=== PATIENT | male | born 1985 | race Caucasian/White ===

== ENCOUNTER 2016-08-16 16:54 | Inpatient (IN) | payer MEDICAID, SELFPAY ==
[~2016-08-16] VITALS: Ht 152.4 cm; Wt 50.3 kg
[2016-08-16] VITALS (27 sets, daily range): BP systolic 100–153; BP diastolic 57–104; O2SAT 100
[2016-08-16] MEDS ORDERED: ASPIRIN 81 MG CHEW TABLET PO ONE (17:30)
[2016-08-16 17:48] LABS: BASO % 0.4 % (0.0-1.0); EOS # 0.1 K/mm3 (0.0-0.50); EOS % 0.9 % (0.0-3.0); LARGE UNSTAINED CELL # 0.1 K/mm3 (0.0-0.4); LARGE UNSTAINED CELL % 1.1 % (0.0-4.0); LYMPH # 1.4 K/mm3 (1.5-6.5); LYMPH % 16.2 % (24.0-44.0); MEAN CORPUSCULAR HEMOGLOBIN 31.6 pg (27.0-33.0); MEAN CORPUSCULAR HGB CONC 34.6 g/dl (32.0-36.5); MEAN CORPUSCULAR VOLUME 91.4 fl (80.0-96.0); MONO # 0.3 K/mm3 (0.0-0.8); MONO % 3.5 % (0.0-5.0); NEUTROPHILS # 6.5 K/mm3 (1.8-7.7); NEUTROPHILS % 77.8 % (36.0-66.0); PLATELET COUNT, AUTOMATED 227 k/mm3 (150-450); RED CELL DISTRIBUTION WIDTH 13.3 % (11.5-14.5); WHITE BLOOD COUNT 8.4 K/mm3 (4.0-10.0)
--- NOTE | 2016-08-16 17:56 | REP ---
Chest two views HISTORY: Chest pain Comparison: 03/29/2013 A moderate sign is left pneumothorax is present. There is no significant shift of the mediastinal structures. The right lung is clear. The heart is normal in size. The pulmonary vasculature is normal in appearance. The bony structure is intact. IMPRESSION: Moderate-sized left pneumothorax. Signed by Mack Jackman MD 08/16/2016 05:47 P
[2016-08-16] MEDS ORDERED: ONDANSETRON 4MG/2ML VIAL (J2405) IV ONE (18:00)
[2016-08-16] MEDS ORDERED: MORPHINE 4 MG/ML 1ML SYRINGE IV ONE (18:00)
[2016-08-16] MEDS ORDERED: KCL 20MEQ IN D5/NS 1000ML 1,000 ML IV SCH (18:14)
[2016-08-16] MEDS ORDERED: ACETAMINOPHEN TAB 650MG DOSE (2X325MG) PO PRN (18:15)
[2016-08-16] MEDS ORDERED: LEVALBUTEROL 1.25 MG/0.5 ML CONCENTRATE NEB NEB PRN (18:15)
[2016-08-16] MEDS ORDERED: ONDANSETRON 4MG/2ML VIAL (J2405) IV PRN (18:15)
[2016-08-16] MEDS ORDERED: BISACODYL 10 MG SUPP PR PRN (18:15)
[2016-08-16 18:19] LABS: ANION GAP 8 MEQ/L (8-16); BLOOD UREA NITROGEN 6 MG/DL (7-18); CALCIUM LEVEL 8.3 MG/DL (8.5-10.1); CARBON DIOXIDE LEVEL 26 MEQ/L (21-32); CHLORIDE LEVEL 109 MEQ/L (98-107); CREATININE FOR GFR 0.88 MG/DL (0.70-1.30); GLOMERULAR FILTRATION RATE > 60.0 (>60); GLUCOSE, FASTING 102 MG/DL (70-105); POTASSIUM SERUM 3.9 MEQ/L (3.5-5.1); SODIUM LEVEL 143 MEQ/L (136-145)
[2016-08-16] MEDS ORDERED: LIDOCAINE 1% MDV 20ML VIAL As Ordered ONE (18:33)
[2016-08-16] MEDS ORDERED: MIDAZOLAM INJ 2 MG/2 ML VIAL (J2250) As Ordered ONE ×3 (18:35→18:57)
[2016-08-16 18:36] LABS: INR 0.98
[2016-08-16] MEDS ORDERED: FLUMAZENIL 0.5 MG/5 ML VIAL As Ordered ONE (18:48)
[2016-08-16] MEDS ORDERED: MIDAZOLAM INJ 2 MG/2 ML VIAL (J2250) IV ONE ×2 (19:30→20:00)
[2016-08-16] MEDS ORDERED: LIDOCAINE 1% MDV 20ML VIAL SC ONE (19:30)
--- NOTE | 2016-08-16 19:42 | REP ---
PORTABLE CHEST, ONE VIEW: HISTORY: Chest tube placement. COMPARISON: 5:44 p.m. 08/16/2016 The patient is status-post left chest tube placement. A small left apical pneumothorax is present. The lungs are clear. The heart is normal in size. IMPRESSION: The patient is status-post left chest tube placement. A small left apical pneumothorax is present. Signed by Mack Jackman MD 08/16/2016 07:45 P
[2016-08-16] MEDS: LEVALBUTEROL 1.25 MG/0.5 ML CONCENTRATE NEB NEB SCH (20:00)
[2016-08-16] MEDS: KETOROLAC 30 MG/ML VIAL (J1885) IV SCH (20:15)
[2016-08-16] MEDS: HEPARIN SOD (PORCINE) 5000 UNITS/ML VIAL SC SCH (21:14)
[2016-08-16] MEDS: DOCUSATE SODIUM 100 MG CAP PO SCH (21:14)
[2016-08-16] MEDS: PERCOCET 5MG/325MG TAB PO PRN (22:36)
[2016-08-17] VITALS: BP 118/79
[2016-08-17] MEDS: KETOROLAC 30 MG/ML VIAL (J1885) IV SCH ×4 (02:04→20:22)
[2016-08-17] MEDS: LEVALBUTEROL 1.25 MG/0.5 ML CONCENTRATE NEB NEB SCH ×4 (02:18→20:32)
[2016-08-17] MEDS: PERCOCET 5MG/325MG TAB PO PRN ×3 (03:48→16:17)
[2016-08-17 04:00] VITALS: BP 110/70
[2016-08-17 04:39] LABS: BASO % 0.3 % (0.0-1.0); EOS # 0.1 K/mm3 (0.0-0.50); EOS % 0.6 % (0.0-3.0); LARGE UNSTAINED CELL # 0.1 K/mm3 (0.0-0.4); LARGE UNSTAINED CELL % 1.1 % (0.0-4.0); LYMPH # 2.4 K/mm3 (1.5-6.5); LYMPH % 25.7 % (24.0-44.0); MEAN CORPUSCULAR HGB CONC 33.3 g/dl (32.0-36.5); MEAN CORPUSCULAR VOLUME 92.9 fl (80.0-96.0); MONO # 0.4 K/mm3 (0.0-0.8); NEUTROPHILS # 6.4 K/mm3 (1.8-7.7); NEUTROPHILS % 68.3 % (36.0-66.0); PLATELET COUNT, AUTOMATED 208 k/mm3 (150-450); RED CELL DISTRIBUTION WIDTH 13.5 % (11.5-14.5); WHITE BLOOD COUNT 9.4 K/mm3 (4.0-10.0)
[2016-08-17 04:43] LABS: ANION GAP 3 MEQ/L (8-16); BLOOD UREA NITROGEN 6 MG/DL (7-18); CALCIUM LEVEL 7.8 MG/DL (8.5-10.1); CARBON DIOXIDE LEVEL 29 MEQ/L (21-32); CHLORIDE LEVEL 112 MEQ/L (98-107); CREATININE FOR GFR 0.86 MG/DL (0.70-1.30); GLOMERULAR FILTRATION RATE > 60.0 (>60); GLUCOSE, FASTING 105 MG/DL (70-105); POTASSIUM SERUM 3.8 MEQ/L (3.5-5.1); SODIUM LEVEL 144 MEQ/L (136-145)
[2016-08-17 06:15] LABS: ABG BASE EXCESS -0.6 (-2.0-2.0); ABG PARTIAL PRESSURE CO2 44.9 mmHg (35.0-45.0); ABG PARTIAL PRESSURE O2 92.6 mmHg (75.0-100.0); ABG TOTAL CO2 26.4 MEQ/L (22.0-29.0); ABG pH (ARTERIAL) 7.364 UNITS (7.350-7.450)
--- NOTE | 2016-08-17 07:38 | HPE ---
DATE OF ADMISSION: 08/16/2016 The patient seen at the request of Dr. Elidia Kapadia in the emergency room for acute onset of left sided chest pain with a chest x-ray that shows a nearly complete pneumothorax on the left. HISTORY OF PRESENT ILLNESS: The patient is a 31-year-old, white male who awoke this morning ready to go work and suddenly felt a sharp stabbing chest pain in his left side which was accompanied by shortness of breath and then shortly thereafter by cough. He has had no prior fever, chills or sweats. There has been no weight loss. There has been no prior upper respiratory infection (URI) and no prior cough or shortness of breath. He works at an [employer]. He was encouraged to come to the emergency room by his relatives where he was found to have a pneumothorax. PAST MEDICAL HISTORY: None. PAST SURGICAL HISTORY: None. He has had all his teeth however removed at the age of 26 for poor dentition. MEDICATIONS AT HOME: None. ALLERGIES: None. TRAVEL HISTORY: No travel to the [facility] or [facility] or any foreign travel. EXPOSURES: No dogs, cats or birds at home. OCCUPATIONAL HISTORY: As noted in history of present illness (HPI). No asbestos exposure. HABITS: He smokes about a 1/2 a pack per day since his teenage years. Drinks very rarely and there is no history of illicit drugs. FAMILY HISTORY: Father at 45 of COPD. Half brother with "collapsed" lung. REVIEW OF SYSTEMS: Constitutional: See HPI. Without diplopia. Without transient monocular blindness. Without prior jaundice. Nose without epistaxis. Mouth is edentulous, without dentures. Respiratory: See HPI. Cardiac: Without prior myocardial infarctions or intermittent claudications or peripheral edema. Gastrointestinal (GI): Without nausea, vomiting, diarrhea, constipation, melena , hematochezia, hematemesis or abdominal pain. Genitourinary (): Without hematuria, dysuria or prior history of renal stones. Neurologic: Without paresthesias, paralyses or prior seizures. Endocrine: Without diabetes. Without thyroid disease. Lymphatics: Without lumps or bumps in the neck, axilla or groin noted. Psychiatric: Without depression, psychoses or anxieties. PHYSICAL EXAMINATION: General: Well developed, asthenic, white male in no acute distress. His temperature is 98.5 with a pulse of 86 and a respiratory rate of 18 without the use of accessory muscles and who is 98% saturated on 3 liters nasal cannula. Eyes: Pupils equal round and reactive to light. Extraocular muscles intact. Sclerae nonicteric. Nose without deformity. Mouth shows the mucous membranes to be pink and moist. Lips and commissures without lesions. There is no thrush. He is missing all his teeth. Neck is supple. There is no jugular venous distention. No subcutaneous emphysema. Trachea is midline. There are no carotid bruits. No lymphadenopathy or thyromegaly. Lungs show markedly decreased breath sounds on the left side where the percussion note is full to the diaphragm and almost hyperresonant. Abdomen: Soft. Nontender. Bowel sounds are positive. There is no hepatomegaly. No costovertebral angle (CVA) tenderness. Cardiac: Exam is without murmurs, clicks, gallops, or rubs. I cannot feel his PMI. S1, S2 are normal. Extremities: Show no pretibial edema. No calf tenderness. No differential swelling of the upper extremities. Skin: Warm, dry and perfused. Without cyanosis or mottling, including that of the nail beds and knees. Neurologic: Shows II-XII intact along with gross motor and gross sensation intact. Gait is not tested. Psychiatric shows him to be awake, alert, and oriented times three with appropriate mood and affect and conversational. INVESTIGATIONS: His white count is 8.5 with hemoglobin and hematocrit of 14.7 and 42.5 and a platelet count of 227 with a differential that shows 77% neutrophils, 16% lymphocytes and 3% monocytes. There are no immature forms and no toxic granulations. Electrolytes are normal with a BUN and creatinine of 6 and 0.88 with a glucose of 102 and a calcium of 8.3. CK-MB is 1 and his troponin is less than 0.02 with lipase of 220 which is within normal limits. PT/INR are 13.1/0.98 respectively. His chest x-ray shows a nearly complete pneumothorax on the left side. The chest x-ray is taken PA and lateral. There is a slight mediastinal shift to the right , but there is no subcutaneous emphysema. IMPRESSION: 1. Spontaneous pneumothorax. 2. Tobacco abuse. PLAN AND DISCUSSION: I will immediately place a chest tube. After doing so, we will watch to see if the lung gets reinflated and continue to watch the x-ray and the air leak. Will check a CT of his chest in the AM and alpha 1 antitrypsin level if emphysematous changes are seen because of his family history. ANNE MARIE
--- NOTE | 2016-08-17 07:38 | ECGEPIP ---
Stationary ECG Study [facility] ED Test Date: 2016-08-16 Pat Name: SUGEY CHAND Department: Room: [place] [address] Gender: M [employer] Work[employer]: donavon : 1985 Requested By: Elidia Jacques Order Number: [id number] Reading MD: Elidia Jacques Measurements Intervals [place] Rate: 80 P: 79 MS: 123 QRS: 84 QRSD: 96 T: 75 QT: 352 QTc: 407 Interpretive Statements SINUS RHYTHM NO PRIOR FOR COMPARISON Electronically Signed On 08-17-2016 7:37:53 EDT by Elidia Jacques
[2016-08-17] MEDS: DOCUSATE SODIUM 100 MG CAP PO SCH ×2 (07:59→20:21)
[2016-08-17] MEDS: MOM 30ML SUSPENSION UDC PO SCH (07:59)
[2016-08-17] MEDS: PANTOPRAZOLE 40MG TAB (PROTONIX) PO SCH (07:59)
[2016-08-17 08:00] VITALS: BP 139/69
[2016-08-17] MEDS ORDERED: ISOVUE-370 76% 100ML VIAL (Q9967) As Ordered ONE (08:00)
[2016-08-17] MEDS: HEPARIN SOD (PORCINE) 5000 UNITS/ML VIAL SC SCH ×2 (08:00→20:21)
--- NOTE | 2016-08-17 09:44 | REP ---
Clinical: Idiopathic blebs. Pneumothorax. Technique: Axial contrast enhanced images from the thoracic inlet to the upper abdomen using 100 ml Isovue 370 intravenous contrast material with multiplanar re-formations. Findings: A chest tube is identified via anterior approach extending to the medial left lung apex. No significant residual pneumothorax is appreciated. The lung ho are well-aerated. Few small scattered sub centimeter intraparenchymal bullae are identified along with small sub centimeter blebs noted at the pleural surface along the medial left upper lobe measuring up to 9.5 mm. Trace left basilar atelectasis noted. No further consolidation, nodule or mass lesion. No pleural effusion. Tracheobronchial tree is patent. Mediastinum demonstrates normal thoracic aorta, pulmonary vasculature and heart/pericardium. Impression: 1. Left apical chest tube. No significant residual pneumothorax. 2. Few small scattered sub centimeter bullae and blebs. 3. Trace basilar atelectasis without further acute mediastinal or pleuroparenchymal process. Signed by Kale Hyman MD 08/17/2016 09:35 A
--- NOTE | 2016-08-17 10:26 | RO ---
DATE OF PROCEDURE: 08/16/2016 PREPROCEDURE DIAGNOSIS: 100% left pneumothorax. POSTPROCEDURE DIAGNOSIS: 100% left pneumothorax. PROCEDURE: Insertion of left anterior chest tube. SURGEON: Dr. Luis Richmond. FOR[employer] FORMS: ANESTHESIA: Versed DESCRIPTION OF PROCEDURE: Under satisfactory moderate sedation in the form of Versed, the patient was prepped and draped in the usual sterile fashion. The skin, subcutaneous tissue muscle, and pleura were infiltrated with 1% Xylocaine over the 2nd rib. A tunnel was created in the 1st intercostal space above the 2nd rib and a #20 chest tube was placed without difficulty. It was secured to the chest wall with a #2-0 Tevdek suture. The tube was connected to the Pleur-evac with a transient air leak but stopped towards the end when the lung was re-inflated. The patient tolerated the procedure well and a chest x-ray is pending.
[2016-08-17] MEDS: NORCO, ANEXSIA 5/325MG TABLET (HYDROcodone/ACETAMINOPHEN) PO PRN (11:30)
[2016-08-17 12:00] VITALS: BP 121/71
--- NOTE | 2016-08-17 13:55 | IPN ---
DATE: 08/17/2016 Please note this is the first hospital day for Mr. Hinojosa. His chest tube is not leaking. His lung is fully expanded to the chest wall. See my discussion of the CAT scan below. His pain is being well controlled with oral pain medications. His vital signs show a T-max of 99.2 with a heart rate that ranges between 17-18 without the use of accessory muscles who is 98% saturated on room air and his blood pressure is ranging between 110/70 to 146/92. His intake and output the past 24 hours has been recorded as 1000 in and 103 out for a positivity of 900 mL. He has put out a total of 8 mL from the chest tube. There is no air leak today. In the last 12 hours he has taken in 1190 mL and put out 405 mL. His weight today is 50 kg compared to 49.4 kg yesterday. PHYSICAL EXAMINATION: His lungs show equal breath sounds on either side. I hear no wheezes, rhonchi, or rhonchi. Percussion is full to the diaphragm. Cardiac exam is without murmurs, clicks, gallops, or rubs. I cannot feel his PMI. S1, S2 normal. Abdomen soft, nontender. Bowel sounds are positive. There is no hepatomegaly. No costovertebral angle (CVA) tenderness. Extremities show no pretibial edema. No calf tenderness. No differential swelling of the upper extremities. Skin is warm, dry and perfused. Without cyanosis or mottling, including that of the nail beds and knees. Neck is supple. There is no jugular venous distention. No subcutaneous emphysema. Trachea is midline. Mouth shows her mucous membranes to be pink and moist. Lips and commissures are without lesions. There is no thrush. Eyes show his pupils to be equal and reactive. Extraocular movements are intact. Sclerae nonicteric. Neurologic shows II-XII intact along with gross motor and gross sensation intact. Gait is not tested. Psychiatric shows him to be awake, alert, and oriented times three with appropriate mood and affect and conversational. His white count today is 9.4 with a hemoglobin and hematocrit of 13.1 and 39.2, slowly down from yesterday's of 14.7 and 42.5. Probably secondary to hemodilution. Platelet count is 208 and a differential shows 68% neutrophils, 25% lymphocytes, and 4% monocytes. There are no immature forms and no toxic granulations. His electrolytes are normal with a BUN and creatinine 6 and 0.86 respectfully. Glucose of 105 and a calcium of 7.8. Blood gases today show a pH of 7.36, PCO2 of 44, PO2 of 92 with a base excess of -0.6. That of course is on room air. His chest CT today shows multiple areas of emphysematous changes throughout his lungs. There is no one specific bleb that I can see which would have been a culprit to his lung falling. Chest tube is in good place. He has emphysematous disease in both the upper and lower lobes. There is some bronchiectasis. I see no other masses. Right adrenals are normal configuration. I do not visualize the left adrenal well, but what I think I see of it looks to be without masses. Liver is without masses as is the spleen. There is no pericardial effusion and there is no mediastinal lymphadenopathy. IMPRESSION: 1. Spontaneous pneumothorax. 2. Extensive emphysematous disease. 3. Family history of early from chronic obstructive pulmonary artery disease (COPD). 4. Tobacco abuse. PLAN AND DISCUSSION: I will check for alpha-1 antitrypsin activity. He does have a family history of early from chronic obstructive pulmonary artery disease (COPD). I have also further given him a ortiz talk with regarding to smoking cessation and it looks as though he is convinced that smoking is indeed not in his best interest. He does not have any cravings for cigarettes at this point and time and so we will not prescribe a nicotine patch. I think that he is fairly well committed to stopping smoking at least at this juncture.
[2016-08-17 16:00] VITALS: BP 130/69
[2016-08-17 20:00] VITALS: BP 134/79
[2016-08-18] VITALS (8 sets, daily range): BP systolic 108–128; BP diastolic 59–78
[2016-08-18] MEDS: LEVALBUTEROL 1.25 MG/0.5 ML CONCENTRATE NEB NEB SCH ×4 (00:17→20:12)
[2016-08-18] MEDS: PERCOCET 5MG/325MG TAB PO PRN (00:52)
[2016-08-18] MEDS: KETOROLAC 30 MG/ML VIAL (J1885) IV SCH ×4 (02:40→21:47)
[2016-08-18 04:40] LABS: BASO % 0.5 % (0.0-1.0); EOS # 0.1 K/mm3 (0.0-0.50); EOS % 1.4 % (0.0-3.0); LARGE UNSTAINED CELL # 0.1 K/mm3 (0.0-0.4); LARGE UNSTAINED CELL % 1.5 % (0.0-4.0); LYMPH % 28.3 % (24.0-44.0); MEAN CORPUSCULAR HEMOGLOBIN 31.2 pg (27.0-33.0); MEAN CORPUSCULAR HGB CONC 34.6 g/dl (32.0-36.5); MEAN CORPUSCULAR VOLUME 90.2 fl (80.0-96.0); MONO # 0.4 K/mm3 (0.0-0.8); MONO % 5.9 % (0.0-5.0); NEUTROPHILS # 4.1 K/mm3 (1.8-7.7); NEUTROPHILS % 62.5 % (36.0-66.0); PLATELET COUNT, AUTOMATED 203 k/mm3 (150-450); RED CELL DISTRIBUTION WIDTH 13.6 % (11.5-14.5); WHITE BLOOD COUNT 6.6 K/mm3 (4.0-10.0)
[2016-08-18 04:53] LABS: ANION GAP 7 MEQ/L (8-16); BLOOD UREA NITROGEN 7 MG/DL (7-18); CALCIUM LEVEL 7.7 MG/DL (8.5-10.1); CARBON DIOXIDE LEVEL 26 MEQ/L (21-32); CHLORIDE LEVEL 111 MEQ/L (98-107); CREATININE FOR GFR 0.79 MG/DL (0.70-1.30); GLOMERULAR FILTRATION RATE > 60.0 (>60); GLUCOSE, FASTING 108 MG/DL (70-105); POTASSIUM SERUM 3.5 MEQ/L (3.5-5.1); SODIUM LEVEL 144 MEQ/L (136-145)
[2016-08-18] MEDS: PANTOPRAZOLE 40MG TAB (PROTONIX) PO SCH (08:48)
[2016-08-18] MEDS: HEPARIN SOD (PORCINE) 5000 UNITS/ML VIAL SC SCH ×2 (08:48→21:46)
[2016-08-18] MEDS: MOM 30ML SUSPENSION UDC PO SCH (08:50)
[2016-08-18] MEDS: DOCUSATE SODIUM 100 MG CAP PO SCH ×2 (08:50→21:46)
--- NOTE | 2016-08-18 09:18 | REP ---
CHEST X-RAY: Two views. HISTORY: Pneumothorax. Comparison chest x-ray July 17, 2016. FINDINGS: There is a chest tube in the left upper anterior chest at its apex. There is no visible pneumothorax. The lungs are symmetrically aerated and clear. Heart is not enlarged. Pulmonary vasculature is not increased. No infiltrate is seen. IMPRESSION: Left chest tube in good position at the apex. No discernible pneumothorax seen. Signed by Leeroy Encinas MD 08/18/2016 11:33 A
--- NOTE | 2016-08-18 16:20 | IPN ---
DATE: 08/18/2016 This is the second hospital day for Mr. Hinojosa. He had a little bit of pain last night which responded to oral analgesics. There is no air leak today. He is not short of breath. His vital signs show a T-max of 98.5 with a heart rate that ranges between 101 and 76 in a sinus rhythm. Respiratory rate of 16-20 without the use of accessory muscle who is 99-98% saturated on room air and his blood pressure is ranging between 120/69 to 118/69. His intake and output the past 24 hours has been recorded as 2030 in and 1535 out for a positivity of 495 mL. He has put 10 mL out f chest tube and as noted above there is no air leak. His weight today is 50.2 kg compared to 50 kg yesterday. PHYSICAL EXAMINATION: He has equal breath sounds on either side. I hear no wheezes, rhonchi, rales. Percussion is full to the diaphragm. Cardiac exam is without murmurs, clicks, gallops, or rubs. I cannot feel his PMI. S1, S2 normal. Abdomen soft, nontender. Bowel sounds are positive. There is no hepatomegaly. No costovertebral angle (CVA) tenderness. Extremities show no pretibial edema. No calf tenderness. No differential swelling of the upper extremities. Skin is warm, dry and perfused. Without cyanosis or mottling, including that of the nail beds and knees. Neck is supple. There is no jugular venous distention. No subcutaneous emphysema. Trachea is midline. Mouth shows his mucous membranes to be pink and moist. Lips and commissures are without lesions. There is no thrush. Eyes show his pupils to be equal and reactive. Extraocular movements are intact. Sclerae nonicteric. Neurologic shows II-XII intact along with gross motor and gross sensation intact. Gait is not tested. Psychiatric shows him to be awake, alert, and oriented times three with appropriate mood and affect and conversational. His white count today is 6.6 with a hemoglobin and hematocrit of 12.3 and 35.6. Differential shows 60% neutrophils, 28% lymphocytes, 5% monocytes. Platelet count is 203. There are no immature forms and no toxic granulations. His electrolytes are normal with a BUN and creatinine of 7 and 0.79. Glucose of 108 and a calcium of 7.7. Alpha-1 antitrypsin is 145 with the lower level being 90. His chest x-ray today shows his lung fully expanded to the chest wall. Chest tube was in good place. I see no other infiltrates. Costophrenic angles are sharp. IMPRESSION: 1. Spontaneous pneumothorax. 2. Extensive emphysematous disease. 3. Family history of early from chronic obstructive pulmonary artery disease (COPD). 4. Tobacco abuse. PLAN AND DISCUSSION: The alpha-1 antitrypsin has come back negative. He does not have a deficiency. His emphysematous changes therefore are purely due to smoking. I have again had a very ortiz talk with him regarding smoking cessation and he seems very motivated to stop smoking. I will remove his chest tube today as there is no air leak and his lung is fully expanded to the chest wall. I explained to the patient that the odds are with him and the pneumothorax will not re-occur however if it does re-occur the odds would be against him that it would re-occur and at that point and time we would recommend more definitive surgical therapy. I plan to discharge him in the morning after a chest x-ray.
[2016-08-19 00:25] VITALS: BP 126/74
[2016-08-19] MEDS: LEVALBUTEROL 1.25 MG/0.5 ML CONCENTRATE NEB NEB SCH ×2 (01:33→07:14)
[2016-08-19] MEDS: KETOROLAC 30 MG/ML VIAL (J1885) IV SCH ×2 (02:19→07:52)
[2016-08-19 04:18] VITALS: BP 129/74
[2016-08-19 05:07] LABS: BASO % 0.3 % (0.0-1.0); EOS # 0.2 K/mm3 (0.0-0.50); EOS % 2.7 % (0.0-3.0); LARGE UNSTAINED CELL # 0.1 K/mm3 (0.0-0.4); LARGE UNSTAINED CELL % 1.9 % (0.0-4.0); LYMPH % 32.1 % (24.0-44.0); MEAN CORPUSCULAR HEMOGLOBIN 30.4 pg (27.0-33.0); MEAN CORPUSCULAR HGB CONC 33.9 g/dl (32.0-36.5); MEAN CORPUSCULAR VOLUME 89.7 fl (80.0-96.0); MONO # 0.3 K/mm3 (0.0-0.8); MONO % 5.8 % (0.0-5.0); NEUTROPHILS # 3.4 K/mm3 (1.8-7.7); NEUTROPHILS % 57.2 % (36.0-66.0); PLATELET COUNT, AUTOMATED 200 k/mm3 (150-450); RED CELL DISTRIBUTION WIDTH 13.8 % (11.5-14.5); WHITE BLOOD COUNT 5.9 K/mm3 (4.0-10.0)
[2016-08-19 05:21] LABS: ANION GAP 6 MEQ/L (8-16); BLOOD UREA NITROGEN 8 MG/DL (7-18); CALCIUM LEVEL 8.3 MG/DL (8.5-10.1); CARBON DIOXIDE LEVEL 28 MEQ/L (21-32); CHLORIDE LEVEL 109 MEQ/L (98-107); CREATININE FOR GFR 0.77 MG/DL (0.70-1.30); GLOMERULAR FILTRATION RATE > 60.0 (>60); GLUCOSE, FASTING 87 MG/DL (70-105); POTASSIUM SERUM 3.1 MEQ/L (3.5-5.1); SODIUM LEVEL 143 MEQ/L (136-145)
--- NOTE | 2016-08-19 07:48 | REP ---
Clinical: Chest pain. Pneumothorax . Comparison: 08/18/2016 . Technique: PA and lateral. Findings: The mediastinum and cardiac silhouette are normal. The lung ho are clear and without acute consolidation, effusion, or pneumothorax. Chest tube has been removed and no residual left apical pneumothorax is appreciated. The skeletal structures are intact and normal. Impression: 1. No acute cardiopulmonary process. 2. No obvious residual left apical pneumothorax appreciated. Signed by Kale Hyman MD 08/19/2016 07:40 A
[2016-08-19] MEDS: PANTOPRAZOLE 40MG TAB (PROTONIX) PO SCH (07:52)
[2016-08-19] MEDS: MOM 30ML SUSPENSION UDC PO SCH (07:52)
[2016-08-19] MEDS: DOCUSATE SODIUM 100 MG CAP PO SCH (07:52)
[2016-08-19] MEDS: HEPARIN SOD (PORCINE) 5000 UNITS/ML VIAL SC SCH (07:52)
[2016-08-19 08:00] VITALS: BP 130/52
[2016-08-19] MEDS: PERCOCET 5MG/325MG TAB PO PRN (11:00)
[2016-08-19] MEDS ORDERED: POTASSIUM CHLORIDE 10 MEQ SR TABLET PO ONE (11:00)
[2016-08-19] MEDS: NORCO, ANEXSIA 5/325MG TABLET (HYDROcodone/ACETAMINOPHEN) PO PRN (12:17)
--- NOTE | 2016-08-20 10:50 | DSES ---
DATE OF ADMISSION: 08/16/2016 DATE OF DISCHARGE: 08/19/2016 DISCHARGE DIAGNOSES: 1. Spontaneous pneumothorax, left side. 2. Emphysematous disease. 3. Family history of early from chronic obstructive pulmonary disease. 4. Tobacco abuse. HOSPITAL COURSE: Patient is a 31-year-old white male who, the morning of admission while getting ready to go to work, suddenly felt a sharp, stabbing chest pain in his left chest which was accompanied by shortness of breath and shortly thereafter by cough. He has had no prior history of fever, chills, or sweats. There has been no weight loss. He smokes approximately 1 to 1/2 pack a day since his teenage years. He was found to have an almost 100% pneumothorax on the left side, and a chest tube was placed anteriorly. Lung was expanded to the chest wall. There was an initial gush of air with evacuating the chest, but there was no alveolar pleural fistula overnight. Chest tube was removed on the first hospital day. Lung had been fully expanded to the chest wall. On discharge, his x-ray showed, again, the lung fully expanded to the chest wall. He slightly hypokalemic with a potassium of 3.1, and he was supplemented with 40 mEq of potassium. He is being discharged today on no medications other than Aleve, Tylenol, or ibuprofen over the counter, as needed pain. Dressings have been removed. His discharge hemoglobin and hematocrit are 12.2 and 35.9, with a discharge BUN/creatinine of 8 and 0.77. Alpha-1 antitrypsin came back normal at 146, with the lower limits of normal being 90. He was advised extensively about smoking cessation and seems to be motivated to do so. I will see him back in the office in 1 week in post-hospitalization followup with a chest x-ray.
== END 2016-08-19 12:20 | disposition home or self-care (01) | DRG 143 ==
LOC: M ED 16:54 → M ED INP 18:00 → M ICU 18:21 → M PCU 08-18 18:41
PROVIDERS: ADMIT Thoracic Surgery (Cardiothoracic Vascular Surgery); ATTEND Thoracic Surgery (Cardiothoracic Vascular Surgery)
PROC: 0W9B30Z Drainage of Left Pleural Cavity with Drainage Device, Percutaneous Approach (ICD-10-PCS; principal; 2016-08-16)
DX: J93.83 Other pneumothorax (principal); J43.9 Emphysema, unspecified; F17.210 Nicotine dependence, cigarettes, uncomplicated; Z82.5 Family history of asthma and other chronic lower respiratory diseases

== ENCOUNTER → 2016-08-30 | Outpatient (CLI) | payer MEDICAID, SELFPAY ==
--- NOTE | 2016-08-30 08:51 | REP ---
Chest two views HISTORY: Lung cancer Comparison: 08/19/2016 The lungs are clear. The heart is normal in size. The pulmonary vasculature is normal in appearance. The bony structure is intact. IMPRESSION: No acute disease. Signed by Mack Jackman MD 08/30/2016 08:42 A
== END ==
LOC: M SMT 08:18
PROVIDERS: ATTEND Thoracic Surgery (Cardiothoracic Vascular Surgery)
DX: C34.32 Malignant neoplasm of lower lobe, left bronchus or lung (principal)

== ENCOUNTER → 2016-09-21 | Outpatient (CLI) | payer OTHER ==
--- NOTE | 2016-09-21 09:51 | REP ---
Chest two views HISTORY: Pneumothorax. Comparison: 08/30/2016 The lungs are clear. The heart is normal in size. The pulmonary vasculature is normal in appearance. The bony structure is intact. IMPRESSION: No acute disease. Signed by Mack Jackman MD 09/21/2016 09:43 A
== END ==
LOC: M SMT 09:01
PROVIDERS: ATTEND Thoracic Surgery (Cardiothoracic Vascular Surgery)
DX: J93.11 Primary spontaneous pneumothorax (principal)

== ENCOUNTER 2023-06-21 12:13 | Inpatient (IN) | payer OTHER ==
[~2023-06-21] VITALS: Ht 154.9 cm; Wt 48.5 kg
[2023-06-21 16:46] LABS: HEMATOCRIT 42.3 % (42.0-52.0); HEMOGLOBIN 14.6 g/dl (13.5-17.5); MEAN CORPUSCULAR HEMOGLOBIN 31.1 pg (27.0-33.0); MEAN CORPUSCULAR HGB CONC 34.5 g/dl (32.0-36.5); MEAN CORPUSCULAR VOLUME 90.2 fl (80.0-96.0); PLATELET COUNT, AUTOMATED 265 10^3/uL (150-450); RED BLOOD COUNT 4.69 10^6/uL (4.30-6.10); WHITE BLOOD COUNT 8.1 10^3/uL (4.0-10.0)
[2023-06-21] MEDS ORDERED: ISOVUE-370 76% 100ML VIAL As Ordered ONE (16:46)
[2023-06-21 17:05] LABS: INR 1.02; PROTHROMBIN TIME 13.1 SECONDS (12.5-14.5)
[2023-06-21 17:19] LABS: CK-MB VALUE MASS 2.2 NG/ML (<3.6)
[2023-06-21 17:24] LABS: CPK CREATINE PHOSPHOKINASE 206 U/L (46-171); MB/CK RELATIVE INDEX 1.06 (< OR =4)
[2023-06-21] MEDS ORDERED: BISACODYL 10MG SUPP PR PRN (18:10)
[2023-06-21] MEDS ORDERED: ONDANSETRON 4MG 2ML VIAL IV PRN (18:10)
[2023-06-21] MEDS ORDERED: LEVALBUTEROL 1.25MG 0.5ML CONCENTRATE NEB NEB PRN (18:10)
[2023-06-21] MEDS ORDERED: PERCOCET 5MG/325MG TAB PO PRN (18:10)
[2023-06-21] MEDS ORDERED: ACETAMINOPHEN TAB 650MG DOSE (2X325MG) PO PRN (18:10)
[2023-06-21] MEDS: NICOTINE 21MG/24HR 1 EA TRANSDERMAL TD ONE (18:16)
[2023-06-21] MEDS ORDERED: MIDAZOLAM INJ 2MG/2ML VIAL IV STA (18:58)
[2023-06-21] MEDS ORDERED: flumazeniL 0.5MG/5ML VIAL IV STA (18:58)
[2023-06-21] MEDS ORDERED: LIDOCAINE 1% MDV 20ML VIAL SC STA (18:58)
[2023-06-21 19:11] VITALS: BP 141/92; TEMP 98.3; O2SAT 100
[2023-06-21 19:40] LABS: BLOOD UREA NITROGEN 13 MG/DL (9-23); CALCIUM LEVEL 8.9 MG/DL (8.5-10.1); CARBON DIOXIDE LEVEL 21 MMOL/L (20-31); CHLORIDE LEVEL 108 MMOL/L (98-107); CREATININE FOR GFR 0.82 MG/DL (0.70-1.30); GLOMERULAR FILTRATION RATE > 60.0 (>60); GLUCOSE, FASTING 96 MG/DL (60-100); POTASSIUM SERUM 3.8 MMOL/L (3.5-5.1); SODIUM LEVEL 139 MMOL/L (136-145)
[2023-06-21 20:00] VITALS: O2SAT 100
[2023-06-21] MEDS: DOCUSATE SODIUM 100MG CAPSULE PO SCH (20:05)
[2023-06-21] MEDS: HEPARIN SOD (PORCINE) 5000UNITS/ML 1ML VIAL/SYRINGE SC SCH (20:05)
[2023-06-21] MEDS: KETOROLAC 30 MG/ML 1ML VIAL IV SCH (20:06)
[2023-06-21] MEDS ORDERED: HOME MED LIST COMPLETE! XX SCH (20:20)
[2023-06-21] MEDS: LEVALBUTEROL 1.25MG 0.5ML CONCENTRATE NEB NEB SCH (20:46)
[2023-06-21 21:00] VITALS: O2SAT 97
[2023-06-21] MEDS: NICOTINE 14 MG/24 HR TRANSDERMAL TD SCH (21:30)
[2023-06-21] MEDS ORDERED: MAALOX 30 ML SUSP *UDC PO PRN (21:30)
[2023-06-21 22:00] VITALS: O2SAT 100
[2023-06-21 23:00] VITALS: O2SAT 100
[2023-06-21 23:35] VITALS: BP 121/72; TEMP 97.6; O2SAT 100
[2023-06-22] VITALS (14 sets, daily range): BP systolic 116–133; BP diastolic 74–83; TEMP 97.2–98.3; O2SAT 97–100
[2023-06-22 05:55] LABS: BASO % 0.5 % (0.0-1.0); EOS # 0.1 10^3/uL (0.0-0.5); EOS % 1.3 % (0.0-3.0); HEMATOCRIT 42.9 % (42.0-52.0); LYMPH # 2.7 10^3/uL (1.5-5.0); LYMPH % 47.4 % (24.0-44.0); MEAN CORPUSCULAR HEMOGLOBIN 31.9 pg (27.0-33.0); MEAN CORPUSCULAR VOLUME 91.3 fl (80.0-96.0); MONO # 0.6 10^3/uL (0.0-0.8); MONO % 10.2 % (2.0-8.0); NEUTROPHILS # 2.2 10^3/uL (1.5-8.5); NEUTROPHILS % 40.1 % (36.0-66.0); PLATELET COUNT, AUTOMATED 275 10^3/uL (150-450); WHITE BLOOD COUNT 5.6 10^3/uL (4.0-10.0)
[2023-06-22 06:12] LABS: ALBUMIN 3.8 G/DL (3.2-5.2); ALKALINE PHOSPHATASE 76 U/L (46-116); ALT/SGPT 13 U/L (7.0-40); AST/SGOT 15 U/L (<34); BILIRUBIN,TOTAL 0.7 MG/DL (0.3-1.2); BLOOD UREA NITROGEN 10 MG/DL (9-23); CARBON DIOXIDE LEVEL 27 MMOL/L (20-31); CHLORIDE LEVEL 109 MMOL/L (98-107); CREATININE FOR GFR 0.81 MG/DL (0.70-1.30); GLOMERULAR FILTRATION RATE > 60.0 (>60); GLUCOSE, FASTING 100 MG/DL (60-100); MAGNESIUM LEVEL 2.4 MG/DL (1.8-2.4); POTASSIUM SERUM 3.9 MMOL/L (3.5-5.1); SODIUM LEVEL 141 MMOL/L (136-145); TOTAL PROTEIN 6.6 G/DL (5.7-8.2)
[2023-06-22] MEDS: PANTOPRAZOLE 40MG TAB (PROTONIX) PO SCH (07:56)
[2023-06-22] MEDS: MOM 30ML SUSPENSION UDC PO SCH (07:57)
[2023-06-22] MEDS ORDERED: NICO1DIS12 TOP (11:27)
[2023-06-22] MEDS ORDERED: SENNA 8.6 MG TAB (SENOKOT) PO SCH (21:00)
== END 2023-06-22 14:42 | disposition home or self-care (01) | DRG 143 ==
LOC: M ED 12:13 → M ED INP 18:09 → M PCU 18:42
PROVIDERS: ADMIT Internal Medicine; ATTEND Internal Medicine Nephrology
DX: J93.83 Other pneumothorax (principal); J43.9 Emphysema, unspecified; J45.909 Unspecified asthma, uncomplicated; F17.210 Nicotine dependence, cigarettes, uncomplicated; J44.9 Chronic obstructive pulmonary disease, unspecified